=== PATIENT | female | born 1945 | race African-American/Black ===

== ENCOUNTER 2022-07-20 09:03 | Day surgery (SDC) | payer MEDICARE, SELFPAY ==
[2022-07-14 10:29] VITALS: BMI 40.7
--- NOTE | 2022-07-20 08:08 | WPDHPUPDATE1 ---
History and Physical Update Update Date/Time: 07/20/22 08:08 History and Physical has been reviewed, including an updated exam of the patient. There are NO changes in the patient's condition. Risks, benefits, and alternatives have been discussed and questions answered. Patient agrees to proceed with procedure.
[2022-07-20 09:26] VITALS: BP 144/60; PULSE 55; RESP 15; TEMP 36.8; O2SAT 100
[2022-07-20] MEDS: TETRACAINE HCL 0.5% OPHTH SOLN 4 ML BTL 1 DROP AFFCTD EYE ×2 (09:31→09:36)
[2022-07-20] MEDS: BRIMONIDINE TARTRATE 0.2% OP SOLN 5 ML BTL 1 DROP AFFCTD EYE ×2 (09:46)
--- NOTE | 2022-07-20 11:54 | W.PM.PROC2 ---
Procedure Note - Detailed Date of Procedure 07/20/22 Pre-op Diagnosis Other secondary cataract right eye Post-op Diagnosis Same Procedure Performed YAG Laser Capsulotomy [right] eye Surgeon Abdiel Atkinson MD Anesthesia Other (Topical) Description of Procedure After appropriate discussion, consent and topical anesthesia, the patient was placed in front of the laser. All settings were checked. The laser procedure was then performed. The patient tolerated the procedure well. Power Level: [3.0mJ] Number of Pulses: [30] Complications None Condition Stable Disposition Same day
== END 2022-07-20 09:54 | disposition home or self-care (01) ==
PROVIDERS: PCP Internal Medicine; Visit Provider Student in an Organized Health Care Education/Training Program
PROC: (CPT 66821; principal; 2022-07-20 10:00)
DX: H26.491 Other secondary cataract, right eye (principal)
CPT/HCPCS: 66821